=== PATIENT | female | born 2000 | race Two or more races ===

== ENCOUNTER 2022-06-10 17:06 | Emergency (ER) | payer BC ==
[~2022-06-10] VITALS: Ht 165.1 cm; Wt 43.1 kg
[2022-06-10] MEDS ORDERED: diphenhydrAMINE 25 MG CAP PO ONE ×2 (17:30→17:40)
[2022-06-10] MEDS ORDERED: IV NORMAL SALINE 1000 ML BAG IV ONE ×2 (17:30→18:30)
[2022-06-10] MEDS ORDERED: PROCHLORPERAZINE EDISYLATE 10 MG/2 ML VIAL ONE (17:30)
[2022-06-10] MEDS ORDERED: PROCHLORPERAZINE EDISYLATE 10 MG/2 ML VIAL IV ONE (17:30)
[2022-06-10 17:32] LABS: HEMATOCRIT 39.7 % (31.2-41.9); MEAN CORPUSCULAR VOLUME 90.3 fL (75.5-95.3); PLATELET COUNT (AUTO) 287 K/uL (179-408)
[2022-06-10 17:54] LABS: CREATININE 0.8 mg/dL (0.6-1.3); POTASSIUM 3.6 mmol/L (3.5-5.1)
[2022-06-10 17:59] LABS: BILIRUBIN,DIRECT 0.2 mg/dL (0.0-0.2); BILIRUBIN,TOTAL 0.6 mg/dL (0.2-1.0); TOTAL PROTEIN, SERUM 7.9 g/dL (6.4-8.2)
[2022-06-10] MEDS ORDERED: KETOROLAC TROMETHAMINE 15 MG INJ IVP ONE (18:15)
--- NOTE | 2022-06-10 18:25 | NUR ---
Urine specimen sent to lab.
[2022-06-10 18:28] LABS: *BILIRUBIN,URIN NEGATIVE (NEGATIVE); *BLOOD, URINE NEGATIVE (NEGATIVE); *CLARITY,URINE CLEAR (CLEAR); *COLOR,URINE YELLOW (YELLOW); *KETONES,URINE 2+ (NEGATIVE); *URINE HCG, QUAL NEG (NEGATIVE); *UROBILINOGEN,URINE 0.2 E.U./dl (NORMAL); LEUKOCYTE ESTERASE ,URINE TRACE (NEGATIVE); NITRITE, URINE NEGATIVE (NEGATIVE); UGLUCOSE NEGATIVE (NEGATIVE)
[2022-06-10] MEDS ORDERED: KETOROLAC TROMETHAMINE 15 MG INJ ONE (18:32)
--- NOTE | 2022-06-10 19:05 | NUR ---
Recieved report sangeeta Phillips RN.
--- NOTE | 2022-06-10 19:24 | NUR ---
Patient's father is at bedside
[2022-06-10 19:28] LABS: HEMATOCRIT 34.9 % (31.2-41.9); MEAN CORPUSCULAR HEMOGLOBIN 29.8 uug (24.7-32.8); MEAN CORPUSCULAR VOLUME 89.7 fL (75.5-95.3); PLATELET COUNT (AUTO) 232 K/uL (179-408)
--- NOTE | 2022-06-10 19:40 | NUR ---
Patient was given water and stated that she no longer feels nauseous.
[2022-06-10] MEDS ORDERED: ONDA4TAB11 PO (19:55)
[2022-06-10] MEDS ORDERED: NAPR500T6 PO (19:55)
--- NOTE | 2022-06-10 20:12 | NUR ---
Patient discharged to home in stable condition. Written and verbal after care instructions given. Patient verbalizes understanding of instructions. Stressed follow up or return to ER for worsening s/s. Patient left accompainied by her father.
[2022-06-10 20:17] VITALS: BP 120/66
[2022-06-10 22:59] LABS: RBC,URINE 0-3 /HPF (0-3)
[2022-06-10 23:00] LABS: BACTERIA,URINE FEW /HPF (NONE SEEN); SQUAMOUS EPITHELIAL CELL,UR MODERATE /HPF (NONE SEEN); WBC,URINE 0-3 /HPF (0-3)
== END 2022-06-10 20:15 | disposition home or self-care (01) ==
LOC: ER 17:06
DX: R51.9 Headache, unspecified (principal); R11.2 Nausea with vomiting, unspecified; Z20.822 Contact with and (suspected) exposure to COVID-19; D72.829 Elevated white blood cell count, unspecified; R79.89 Other specified abnormal findings of blood chemistry; Z86.69 Personal history of other diseases of the nervous system and sense organs
CPT/HCPCS: 99284; 96374; 71045; 96361; 96375; 87426; 87804 ×2; 80076; 80048; 81001; 84703; 83690; 85025 ×2; 36415; 83605 ×2; Q0163; J1885; J0780; J7040 ×2